=== PATIENT | male | born 1980 | race Two or more races ===

== ENCOUNTER 2020-06-14 17:34 | Inpatient (IN) | payer OTHER ==
[2020-06-14 19:25] VITALS: BMI 31.1
--- NOTE | 2020-06-14 19:47 | BHS.RME ---
Substance Use & Tx History - Last Treatment Date of last treatment: today [facility] Where was last treatment: ER Physical/Psych/Mental Status - Behavior Eye Contact: Normal - Cooperativeness Cooperativeness: Cooperative - Thinking Thought Processes: Logical - Physical Health Problems Is patient presently having any pain?: No Does patient presently have any injuries (include location): No Does patient currently have a fever: No CIWA Nausea/Vomitin Muscle Tremors: None Anxiety: 1-Mildly Anxious Agitation: 1-Slight > Activity Paroxysmal Sweats: 1-Minimal Palms Moist Orientation: 1-Uncertain about Date Tacttile Disturbances: 2-Mild Itch/Numbness/Burn Auditory Disturbances: 0-None Visual Disturbances: 3-Moderate Sensitivity Headache: 3-Moderate CIWA-Ar Total Score: 15
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
[2020-06-14] MEDS ORDERED: MENTHOL/PHENOL 1 EACH UD MM PRN (20:02)
[2020-06-14] MEDS ORDERED: METHOCARBAMOL 500 MG TABLET PO PRN (20:02)
[2020-06-14] MEDS ORDERED: ACETAMINOPHEN 325 MG TABLET (FP) PO PRN ×2 (20:02)
[2020-06-14] MEDS ORDERED: ONDANSETRON *ODT* 4 MG TABLET SL PRN (20:02)
[2020-06-14] MEDS ORDERED: BISMUTH SUBSALICYLATE 524 MG/30 ML UD PO PRN (20:02)
[2020-06-14] MEDS ORDERED: MAGNESIUM HYDROX 2400MG/30ML ORAL SUSPENSION 30 ML CUP PO PRN (20:02)
[2020-06-14] MEDS ORDERED: MAGNESIUM CITRATE 300 ML BOTTLE PO PRN (20:02)
[2020-06-14] MEDS ORDERED: MAG HYDROX/AL HYDROX/SIMETH 30 ML UNIT-DOSE CUP PO PRN (20:02)
[2020-06-14] MEDS ORDERED: chlordiazePOXIDE HCL 25 MG CAPSULE PO PRN (20:10)
[2020-06-14] MEDS: hydrOXYzine PAMOATE 25 MG CAPSULE (FP) PO PRN (21:50)
[2020-06-14] MEDS: NICOTINE POLACRILEX 2 MG GUM BUC PRN (21:53)
[2020-06-14] MEDS: THIAMINE HCL 100 MG TABLET (FP) PO SCH (21:53)
[2020-06-14] MEDS: MELATONIN 5 MG TABLETS PO SCH (21:53)
[2020-06-14] MEDS: BACITRACIN 0.9 GM PACKET TP SCH (21:53)
[2020-06-14] MEDS: chlordiazePOXIDE HCL 25 MG CAPSULE PO SCH (22:05)
[2020-06-15] MEDS: chlordiazePOXIDE HCL 25 MG CAPSULE PO SCH ×4 (06:10→22:27)
[2020-06-15] MEDS: NICOTINE POLACRILEX 2 MG GUM BUC PRN ×2 (08:30→20:18)
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
[2020-06-15 10:15] LABS: HEMOGLOBIN 16.1 GM/dL (11.7-16.9); MCH 31.7 pg (25.7-33.7); MCHC 33.6 g/dl (32.0-35.9); MEAN CELL VOLUME 94.5 fl (80-96); MEAN PLT VOLUME 9.4 fl (7.5-11.1); PLATELET COUNT 190 K/MM3 (134-434); RBC 5.08 M/mm3 (4.00-5.60); RDW 13.9 % (11.9-15.9); WHITE BLOOD COUNT 6.2 K/mm3 (4.0-10.0)
[2020-06-15] MEDS: BACITRACIN 0.9 GM PACKET TP SCH ×2 (10:22→22:27)
[2020-06-15] MEDS: SERTRALINE HCL 50 MG TABLET (FP) PO SCH (10:22)
[2020-06-15] MEDS: PRENATAL VITAMINS W/ FOLIC ACID TABLET (FP) PO SCH (10:22)
[2020-06-15 10:26] LABS: ALBUMIN 4.1 g/dl (3.4-5.0); BILIRUBIN,TOTAL 0.7 mg/dL (0.2-1); BLOOD UREA NITROGEN 14.5 mg/dL (7-18); CALCIUM 9.4 mg/dL (8.5-10.1); CREATININE 1.4 mg/dL (0.55-1.3); POTASSIUM 4.1 mmol/L (3.5-5.1); TOT PROT 7.7 g/dl (6.4-8.2)
--- NOTE | 2020-06-15 10:57 | PN ---
S CIWA - CIWA Score Nausea/Vomitin-No Nausea/No Vomiting Muscle Tremors: 2 Anxiety: 2 Agitation: 3 Paroxysmal Sweats: 2 Orientation: 0-Oriented Tacttile Disturbances: 0-None Auditory Disturbances: 0-None Visual Disturbances: 0-None Headache: 0-None Present CIWA-Ar Total Score: 9 BHS Progress Note (SOAP) Subjective: sweats shakes body aches interrupted sleep Objective: 06/15/20 10:56 Vital Signs Temperature 98.2 F 06/15/20 10:10 Pulse Rate 91 H 06/15/20 10:10 Respiratory Rate 18 06/15/20 10:10 Blood Pressure 123/75 06/15/20 10:10 O2 Sat by Pulse Oximetry (%) 98 06/15/20 10:10 Laboratory Tests 06/15/20 06/15/20 07:00 07:00 WBC 6.2 RBC 5.08 Hgb 16.1 Hct 48.0 MCV 94.5 MCH 31.7 MCHC 33.6 RDW 13.9 Plt Count 190 D MPV 9.4 Sodium 140 Potassium 4.1 Chloride 103 Carbon Dioxide 26 Anion Gap 11 BUN 14.5 Creatinine 1.4 H Est GFR (CKD-EPI)AfAm 72.32 Est GFR (CKD-EPI)NonAf 62.40 Random Glucose 118 H Calcium 9.4 Total Bilirubin 0.7 AST 27 ALT 44 Alkaline Phosphatase 120 H Total Protein 7.7 Albumin 4.1 labs noted aaox3 ambulating no acute distress Assessment: 06/15/20 10:57 withdrawals Plan: continue detox
[2020-06-15] MEDS ORDERED: FLU VACCINE (FLULAVAL) PF 60 MCG/0.5 ML SYRINGE 2020-2021 IM ONE (12:00)
[2020-06-15] MEDS: MELATONIN 5 MG TABLETS PO SCH (22:27)
[2020-06-15] MEDS: THIAMINE HCL 100 MG TABLET (FP) PO SCH (22:27)
[2020-06-16] MEDS: chlordiazePOXIDE HCL 25 MG CAPSULE PO SCH ×4 (05:45→22:14)
[2020-06-16] MEDS: PRENATAL VITAMINS W/ FOLIC ACID TABLET (FP) PO SCH (10:32)
[2020-06-16] MEDS: SERTRALINE HCL 50 MG TABLET (FP) PO SCH (10:32)
[2020-06-16] MEDS: BACITRACIN 0.9 GM PACKET TP SCH ×2 (10:32→22:14)
[2020-06-16] MEDS: NICOTINE POLACRILEX 2 MG GUM BUC PRN (10:32)
--- NOTE | 2020-06-16 12:30 | PN ---
S CIWA - CIWA Score Nausea/Vomitin-No Nausea/No Vomiting Muscle Tremors: 2 Anxiety: 1-Mildly Anxious Agitation: 2 Paroxysmal Sweats: 2 Orientation: 0-Oriented Tacttile Disturbances: 0-None Auditory Disturbances: 0-None Visual Disturbances: 0-None Headache: 0-None Present CIWA-Ar Total Score: 7 BHS Progress Note (SOAP) Subjective: sweats shakes Objective: 06/16/20 12:28 Vital Signs Temperature 97.7 F 06/16/20 09:05 Pulse Rate 92 H 06/16/20 09:05 Respiratory Rate 18 06/16/20 09:05 Blood Pressure 136/73 06/16/20 09:05 O2 Sat by Pulse Oximetry (%) 97 06/16/20 06:01 Laboratory Tests 06/14/20 06/15/20 06/15/20 07:00 07:00 07:00 WBC 6.2 RBC 5.08 Hgb 16.1 Hct 48.0 MCV 94.5 MCH 31.7 MCHC 33.6 RDW 13.9 Plt Count 190 D MPV 9.4 Sodium 140 Potassium 4.1 Chloride 103 Carbon Dioxide 26 Anion Gap 11 BUN 14.5 Creatinine 1.4 H Est GFR (CKD-EPI)AfAm 72.32 Est GFR (CKD-EPI)NonAf 62.40 Random Glucose 118 H Calcium 9.4 Total Bilirubin 0.7 AST 27 ALT 44 Alkaline Phosphatase 120 H Total Protein 7.7 Albumin 4.1 Syphilis Serology Non-reactive HIV Ag/Ab Combo Qual 06/15/20 07:00 WBC RBC Hgb Hct MCV MCH MCHC RDW Plt Count MPV Sodium Potassium Chloride Carbon Dioxide Anion Gap BUN Creatinine Est GFR (CKD-EPI)AfAm Est GFR (CKD-EPI)NonAf Random Glucose Calcium Total Bilirubin AST ALT Alkaline Phosphatase Total Protein Albumin Syphilis Serology HIV Ag/Ab Combo Qual Negative aaox3 ambulating no acute distress Assessment: 06/16/20 12:29 withdrawal sx Plan: continue detox increase fluids
[2020-06-16] MEDS: IBUPROFEN 400 MG TABLET (FP) PO PRN (19:15)
[2020-06-16] MEDS: MELATONIN 5 MG TABLETS PO SCH (22:14)
[2020-06-16] MEDS: THIAMINE HCL 100 MG TABLET (FP) PO SCH (22:15)
[2020-06-17] MEDS ORDERED: chlordiazePOXIDE HCL 10 MG CAPSULE PO PRN
[2020-06-17] MEDS: chlordiazePOXIDE HCL 10 MG CAPSULE PO SCH ×4 (06:49→22:04)
[2020-06-17] MEDS: SERTRALINE HCL 50 MG TABLET (FP) PO SCH (10:14)
[2020-06-17] MEDS: BACITRACIN 0.9 GM PACKET TP SCH ×2 (10:14→22:32)
[2020-06-17] MEDS: PRENATAL VITAMINS W/ FOLIC ACID TABLET (FP) PO SCH (10:15)
--- NOTE | 2020-06-17 11:13 | PN ---
[facility] CIWA - CIWA Score Nausea/Vomitin-No Nausea/No Vomiting Muscle Tremors: 1-None Visible, but [place] Anxiety: 1-Mildly Anxious Agitation: 1-Slight > Activity Paroxysmal Sweats: 1-Minimal Palms Moist Orientation: 0-Oriented Tacttile Disturbances: 0-None Auditory Disturbances: 0-None Visual Disturbances: 0-None Headache: 0-None Present CIWA-Ar Total Score: 4 BHS Progress Note (SOAP) Subjective: feeling great little sweats little anxiety Objective: 06/17/20 11:13 Vital Signs Temperature 97.7 F 06/17/20 08:25 Pulse Rate 99 H 06/17/20 08:25 Respiratory Rate 18 06/17/20 08:25 Blood Pressure 137/87 06/17/20 08:25 O2 Sat by Pulse Oximetry (%) 97 06/17/20 08:25 aaox3 ambulating no acute distress Assessment: 06/17/20 11:13 mild withdrawals Plan: continue detox increase fluids
[2020-06-17] MEDS: NICOTINE POLACRILEX 2 MG GUM BUC PRN (18:03)
[2020-06-17] MEDS: hydrOXYzine PAMOATE 25 MG CAPSULE (FP) PO PRN (20:40)
[2020-06-17] MEDS: THIAMINE HCL 100 MG TABLET (FP) PO SCH (22:04)
[2020-06-17] MEDS: MELATONIN 5 MG TABLETS PO SCH (22:04)
[2020-06-18] MEDS: chlordiazePOXIDE HCL 10 MG CAPSULE PO SCH ×2 (05:35→18:28)
[2020-06-18] MEDS: PRENATAL VITAMINS W/ FOLIC ACID TABLET (FP) PO SCH (10:14)
[2020-06-18] MEDS: BACITRACIN 0.9 GM PACKET TP SCH ×2 (10:14→22:11)
[2020-06-18] MEDS: SERTRALINE HCL 50 MG TABLET (FP) PO SCH (10:14)
--- NOTE | 2020-06-18 13:33 | PN ---
[facility] CIWA - CIWA Score Nausea/Vomitin-No Nausea/No Vomiting Muscle Tremors: 1-None Visible, but [place] Anxiety: 1-Mildly Anxious Agitation: 0-Normal Activity Paroxysmal Sweats: No Perspiration Orientation: 0-Oriented Tacttile Disturbances: 0-None Auditory Disturbances: 0-None Visual Disturbances: 0-None Headache: 0-None Present CIWA-Ar Total Score: 2 BHS Progress Note (SOAP) Subjective: feeling great Objective: 06/18/20 13:20 Vital Signs Temperature 98.4 F 06/18/20 08:40 Pulse Rate 99 H 06/18/20 08:40 Respiratory Rate 18 06/18/20 08:40 Blood Pressure 143/91 06/18/20 08:40 O2 Sat by Pulse Oximetry (%) 100 06/18/20 08:40 aaox3 ambulating no acute distress Assessment: 06/18/20 13:20 mild withdrawals Plan: d/c in am
[2020-06-18] MEDS: IBUPROFEN 400 MG TABLET (FP) PO PRN (18:27)
[2020-06-18] MEDS: MELATONIN 5 MG TABLETS PO SCH (22:11)
[2020-06-18] MEDS: THIAMINE HCL 100 MG TABLET (FP) PO SCH (22:11)
[2020-06-19] MEDS ORDERED: chlordiazePOXIDE HCL 10 MG CAPSULE PO ONE (05:00)
[2020-06-19 08:46] VITALS: BP 147/93; PULSE 86; TEMP 96.9
[2020-06-19] MEDS: SERTRALINE HCL 50 MG TABLET (FP) PO SCH (09:15)
[2020-06-19] MEDS: PRENATAL VITAMINS W/ FOLIC ACID TABLET (FP) PO SCH (09:16)
[2020-06-19] MEDS: BACITRACIN 0.9 GM PACKET TP SCH (09:17)
--- NOTE | 2020-06-19 11:12 | DS ---
[facility] Detox Discharge Summary Admission Date: 06/14/20 Discharge Date: 06/19/20 - History Present History: Alcohol Dependence Additional Comments: Patient seen and examined, alert and oriented x3, in acute respiratory distress. Full ROM, ambulatory in the unit without assistance. Skin warm to touch without lesions. Completed detox protocol, stable for discharge today. Encouraged to follow up with aftercare plans. Pertinent Past History: History of HTN, HLD, depression, alcohol and nicotine use disorder - Physical Exam Results Vital Signs: Vital Signs Temperature 96.9 F L 06/19/20 06:25 Pulse Rate 86 06/19/20 06:25 Respiratory Rate 20 06/19/20 06:25 Blood Pressure 147/93 06/19/20 06:25 O2 Sat by Pulse Oximetry (%) 100 06/19/20 06:25 Vital Signs 06/19/20 06:25 Temperature 96.9 F L Pulse Rate 86 Respiratory 20 Rate Blood Pressure 147/93 O2 Sat by Pulse 100 Oximetry (%) Laboratory Last Values WBC 6.2 K/mm3 (4.0-10.0) 06/15/20 07:00 RBC 5.08 M/mm3 (4.00-5.60) 06/15/20 07:00 Hgb 16.1 GM/dL (11.7-16.9) 06/15/20 07:00 Hct 48.0 % (35.4-49) 06/15/20 07:00 MCV 94.5 fl (80-96) 06/15/20 07:00 MCH 31.7 pg (25.7-33.7) 06/15/20 07:00 MCHC 33.6 g/dl (32.0-35.9) 06/15/20 07:00 RDW 13.9 % (11.9-15.9) 06/15/20 07:00 Plt Count 190 K/MM3 (134-434) D 06/15/20 07:00 MPV 9.4 fl (7.5-11.1) 06/15/20 07:00 Sodium 140 mmol/L (136-145) 06/15/20 07:00 Potassium 4.1 mmol/L (3.5-5.1) 06/15/20 07:00 Chloride 103 mmol/L (98-107) 06/15/20 07:00 Carbon Dioxide 26 mmol/L (21-32) 06/15/20 07:00 Anion Gap 11 MMOL/L (8-16) 06/15/20 07:00 BUN 14.5 mg/dL (7-18) 06/15/20 07:00 Creatinine 1.4 mg/dL (0.55-1.3) H 06/15/20 07:00 Est GFR (CKD-EPI)AfAm 72.32 06/15/20 07:00 Est GFR (CKD-EPI)NonAf 62.40 06/15/20 07:00 Random Glucose 118 mg/dL (74-106) H 06/15/20 07:00 Calcium 9.4 mg/dL (8.5-10.1) 06/15/20 07:00 Total Bilirubin 0.7 mg/dL (0.2-1) 06/15/20 07:00 AST 27 U/L (15-37) 06/15/20 07:00 ALT 44 U/L (13-61) 06/15/20 07:00 Alkaline Phosphatase 120 U/L (45-117) H 06/15/20 07:00 Total Protein 7.7 g/dl (6.4-8.2) 06/15/20 07:00 Albumin 4.1 g/dl (3.4-5.0) 06/15/20 07:00 Syphilis Serology Non-reactive (NONREACTIVE) 06/14/20 07:00 COVID-19 (NELL) Not detected (Not Detected) 06/14/20 20:20 HIV Ag/Ab Combo Qual Negative (NEGATIVE) 06/15/20 07:00 Labs noted. Pertinent Admission Physical Exam Findings: Withdrawal symptoms. - Treatment Hospital Course: Detox Protocol Followed, Detoxed Safely, Responded well, Discharged Condition Good - Medication Discharge Medications: Ambulatory Orders NK [No Known Home Medication] 06/14/20 - Diagnosis (1) Alcohol dependence, uncomplicated Status: Acute (2) HLD (hyperlipidemia) Status: Chronic (3) HTN (hypertension) Status: Chronic - AMA Did Patient Leave Against Medical Advice: No
== END 2020-06-19 09:25 | disposition home or self-care (01) | DRG 775 ==
LOC: YASAS 17:34 → Y6N 20:13
PROVIDERS: ADMIT Allergy & Immunology; ATTEND Allergy & Immunology
PROC: HZ2ZZZZ Detoxification Services for Substance Abuse Treatment (ICD-10-PCS; principal; 2020-06-14)
DX: F10.230 Alcohol dependence with withdrawal, uncomplicated (principal); F17.210 Nicotine dependence, cigarettes, uncomplicated; F33.1 Major depressive disorder, recurrent, moderate; F10.24 Alcohol dependence with alcohol-induced mood disorder; F10.282 Alcohol dependence with alcohol-induced sleep disorder; E78.5 Hyperlipidemia, unspecified; E78.00 Pure hypercholesterolemia, unspecified; Z86.69 Personal history of other diseases of the nervous system and sense organs; Z87.81 Personal history of (healed) traumatic fracture; Z98.890 Other specified postprocedural states
CPT/HCPCS: 36415; 80053; 85027; 86780; 87389; C9803; U0003

== ENCOUNTER 2022-12-16 15:10 | Inpatient (IN) | payer OTHER ==
[2022-12-16 16:01] VITALS: BMI 35.6
[2022-12-16] MEDS ORDERED: IBUPROFEN 600 MG TABLET (FP) PO PRN (18:48)
[2022-12-16] MEDS ORDERED: MAG HYDROX/AL HYDROX/SIMETH 30 ML UNIT-DOSE CUP PO PRN (18:48)
[2022-12-16] MEDS ORDERED: NICOTINE 10 MG CARTRIDGE (INHALER) IH PRN (18:48)
[2022-12-16] MEDS ORDERED: chlordiazePOXIDE HCL 25 MG CAPSULE PO PRN (18:48)
[2022-12-16] MEDS ORDERED: BENZOCAINE/MENTHOL (CHLORASEPTIC ) LOZENGE MM PRN (18:48)
[2022-12-16] MEDS ORDERED: POLYETHYLENE GLYCOL (HEALTHYLAX) 3350 17 GM PACKET PO PRN (18:48)
[2022-12-16] MEDS ORDERED: NALOXONE HCL (KLOXXADO) 8 MG SPRAY NS PRN (18:48)
[2022-12-16] MEDS ORDERED: ONDANSETRON *ODT* 4 MG TABLET SL PRN (18:48)
[2022-12-16] MEDS ORDERED: NALOXONE HCL 0.4 MG/ML VIAL IM PRN (18:48)
[2022-12-16] MEDS ORDERED: BENZONATATE 200 MG CAPSULE PO PRN (18:48)
[2022-12-16] MEDS ORDERED: LOPERAMIDE HCL 2 MG CAPSULE PO PRN (18:48)
[2022-12-16] MEDS ORDERED: guaiFENesin 600 MG TABLET.ER (FP) PO PRN (18:48)
[2022-12-16] MEDS ORDERED: MAGNESIUM HYDROX 2400MG/30ML ORAL SUSPENSION 30 ML CUP PO PRN (18:48)
[2022-12-16] MEDS ORDERED: DICYCLOMINE HCL 10 MG CAPSULE PO PRN (18:48)
[2022-12-16] MEDS ORDERED: IBUPROFEN 400 MG TABLET (FP) PO PRN (18:48)
[2022-12-16] MEDS ORDERED: BISMUTH SUBSALICYLATE 524 MG/30 ML PO PRN (18:48)
[2022-12-16] MEDS ORDERED: ACETAMINOPHEN 325 MG TABLET (FP) PO PRN (18:48)
[2022-12-16] MEDS: hydrOXYzine PAMOATE 25 MG CAPSULE (FP) PO PRN (20:05)
[2022-12-16] MEDS ORDERED: MELATONIN 5 MG TABLETS PO SCH (22:00)
[2022-12-16] MEDS: THIAMINE HCL 100 MG TABLET (FP) PO SCH (22:53)
[2022-12-16] MEDS: chlordiazePOXIDE HCL 25 MG CAPSULE PO SCH (22:53)
[2022-12-17] MEDS: chlordiazePOXIDE HCL 25 MG CAPSULE PO SCH ×4 (05:47→22:33)
[2022-12-17] MEDS: METHOCARBAMOL 500 MG TABLET PO PRN (10:35)
[2022-12-17] MEDS: hydrOXYzine PAMOATE 25 MG CAPSULE (FP) PO PRN (10:35)
[2022-12-17] MEDS: PRENATAL VITAMINS W/ FOLIC ACID TABLET (FP) PO SCH (10:35)
[2022-12-17] MEDS: SERTRALINE HCL 50 MG TABLET (FP) PO SCH (10:46)
[2022-12-17 12:25] LABS: HEMATOCRIT 48.3 % (35.4-49); HEMOGLOBIN 16.9 GM/dL (11.7-16.9); MCHC 34.9 g/dl (32.0-35.9); MEAN CELL VOLUME 88.8 fl (80-96); MEAN PLT VOLUME 9.7 fl (7.5-11.1); PLATELET COUNT 141 10^3/uL (134-434); RBC 5.44 M/mm3 (4.00-5.60); RDW 15.4 % (11.9-15.9); WHITE BLOOD COUNT 4.1 K/mm3 (4.0-10.0)
[2022-12-17 12:36] LABS: CALCIUM 8.8 mg/dL (8.5-10.1)
[2022-12-17 12:37] LABS: ALBUMIN 3.9 g/dl (3.4-5.0); BLOOD UREA NITROGEN 10.2 mg/dL (7-18)
[2022-12-17 12:40] LABS: CREATININE 0.9 mg/dL (0.55-1.3)
[2022-12-17 12:41] LABS: TOT PROT 7.3 g/dl (6.4-8.2)
[2022-12-17] MEDS: THIAMINE HCL 100 MG TABLET (FP) PO SCH (22:34)
[2022-12-17] MEDS: MELATONIN 5 MG TABLETS PO SCH (22:34)
[2022-12-18] MEDS: chlordiazePOXIDE HCL 25 MG CAPSULE PO SCH ×4 (05:36→22:16)
[2022-12-18] MEDS: PRENATAL VITAMINS W/ FOLIC ACID TABLET (FP) PO SCH (10:50)
[2022-12-18] MEDS: SERTRALINE HCL 50 MG TABLET (FP) PO SCH (10:50)
[2022-12-18] MEDS: METHOCARBAMOL 500 MG TABLET PO PRN (10:50)
[2022-12-18] MEDS: hydrOXYzine PAMOATE 25 MG CAPSULE (FP) PO PRN (10:50)
[2022-12-18] MEDS: amLODIPine BESYLATE 2.5 MG TABLET (FP) PO SCH (11:07)
[2022-12-18 11:32] LABS: CHOLESTEROL 219 mg/dL (50-200)
[2022-12-18 11:33] LABS: LDL CHOLESTEROL (ONLY SJRH) 127 mg/dL (5-100)
[2022-12-18 11:35] LABS: HDL CHOLESTEROL 66 mg/dL (40-60)
[2022-12-18] MEDS: THIAMINE HCL 100 MG TABLET (FP) PO SCH (22:16)
[2022-12-18] MEDS: MELATONIN 5 MG TABLETS PO SCH (22:16)
[2022-12-19] MEDS ORDERED: chlordiazePOXIDE HCL 10 MG CAPSULE PO PRN
[2022-12-19] MEDS: chlordiazePOXIDE HCL 10 MG CAPSULE PO SCH ×4 (05:41→22:27)
[2022-12-19] MEDS: METHOCARBAMOL 500 MG TABLET PO PRN (10:04)
[2022-12-19] MEDS: SERTRALINE HCL 50 MG TABLET (FP) PO SCH (10:04)
[2022-12-19] MEDS: amLODIPine BESYLATE 2.5 MG TABLET (FP) PO SCH (10:04)
[2022-12-19] MEDS: hydrOXYzine PAMOATE 25 MG CAPSULE (FP) PO PRN (10:04)
[2022-12-19] MEDS: PRENATAL VITAMINS W/ FOLIC ACID TABLET (FP) PO SCH (10:04)
[2022-12-19] MEDS: THIAMINE HCL 100 MG TABLET (FP) PO SCH (22:27)
[2022-12-19] MEDS: MELATONIN 5 MG TABLETS PO SCH (22:27)
[2022-12-20] MEDS: chlordiazePOXIDE HCL 10 MG CAPSULE PO SCH ×2 (05:29→17:44)
[2022-12-20] MEDS: PRENATAL VITAMINS W/ FOLIC ACID TABLET (FP) PO SCH (10:19)
[2022-12-20] MEDS: amLODIPine BESYLATE 2.5 MG TABLET (FP) PO SCH (10:19)
[2022-12-20] MEDS: SERTRALINE HCL 50 MG TABLET (FP) PO SCH (10:19)
[2022-12-20] MEDS: MELATONIN 5 MG TABLETS PO SCH (22:09)
[2022-12-20] MEDS: THIAMINE HCL 100 MG TABLET (FP) PO SCH (22:09)
[2022-12-21] MEDS ORDERED: chlordiazePOXIDE HCL 10 MG CAPSULE PO ONE (05:00)
[2022-12-21 06:39] VITALS: RESP 18
[2022-12-21 09:03] VITALS: BP 153/94; PULSE 98; TEMP 98.4
[2022-12-21] MEDS: PRENATAL VITAMINS W/ FOLIC ACID TABLET (FP) PO SCH (11:01)
[2022-12-21] MEDS: SERTRALINE HCL 50 MG TABLET (FP) PO SCH (11:03)
[2022-12-21] MEDS: amLODIPine BESYLATE 2.5 MG TABLET (FP) PO SCH (11:04)
== END 2022-12-21 10:08 | disposition home or self-care (01) | DRG 775 ==
LOC: YASAS 15:10 → Y6N 19:22
PROVIDERS: ADMIT Allergy & Immunology; ATTEND Surgery
PROC: HZ2ZZZZ Detoxification Services for Substance Abuse Treatment (ICD-10-PCS; principal; 2022-12-16)
DX: F10.230 Alcohol dependence with withdrawal, uncomplicated (principal); F12.20 Cannabis dependence, uncomplicated; F17.210 Nicotine dependence, cigarettes, uncomplicated; F19.282 Other psychoactive substance dependence with psychoactive substance-induced sleep disorder; F41.8 Other specified anxiety disorders; I10 Essential (primary) hypertension; Z86.69 Personal history of other diseases of the nervous system and sense organs
CPT/HCPCS: 36415; 80053; 80061; 85027; 86780; 87811; C9803-CS; U0003; U0005

== ENCOUNTER 2023-01-04 19:24 | Inpatient (IN) | payer OTHER ==
[2023-01-04 19:55] VITALS: BMI 34.7
[2023-01-04] MEDS ORDERED: BENZONATATE 200 MG CAPSULE PO PRN (20:42)
[2023-01-04] MEDS ORDERED: NALOXONE HCL 0.4 MG/ML VIAL IM PRN (20:42)
[2023-01-04] MEDS ORDERED: ONDANSETRON *ODT* 4 MG TABLET SL PRN (20:42)
[2023-01-04] MEDS ORDERED: MAG HYDROX/AL HYDROX/SIMETH 30 ML UNIT-DOSE CUP PO PRN (20:42)
[2023-01-04] MEDS ORDERED: POLYETHYLENE GLYCOL (HEALTHYLAX) 3350 17 GM PACKET PO PRN (20:42)
[2023-01-04] MEDS ORDERED: MAGNESIUM HYDROX 2400MG/30ML ORAL SUSPENSION 30 ML CUP PO PRN (20:42)
[2023-01-04] MEDS ORDERED: DICYCLOMINE HCL 10 MG CAPSULE PO PRN (20:42)
[2023-01-04] MEDS ORDERED: NALOXONE HCL (KLOXXADO) 8 MG SPRAY NS PRN (20:42)
[2023-01-04] MEDS ORDERED: chlordiazePOXIDE HCL 25 MG CAPSULE PO PRN (20:42)
[2023-01-04] MEDS ORDERED: LOPERAMIDE HCL 2 MG CAPSULE PO PRN (20:42)
[2023-01-04] MEDS ORDERED: BENZOCAINE/MENTHOL (CHLORASEPTIC ) LOZENGE MM PRN (20:42)
[2023-01-04] MEDS ORDERED: guaiFENesin 600 MG TABLET.ER (FP) PO PRN (20:42)
[2023-01-04] MEDS ORDERED: ACETAMINOPHEN 325 MG TABLET (FP) PO PRN (20:42)
[2023-01-04] MEDS ORDERED: BISMUTH SUBSALICYLATE 524 MG/30 ML PO PRN (20:42)
[2023-01-04] MEDS ORDERED: MELATONIN 5 MG TABLETS PO SCH (22:00)
[2023-01-04] MEDS: chlordiazePOXIDE HCL 25 MG CAPSULE PO SCH (22:46)
[2023-01-04] MEDS: THIAMINE HCL 100 MG TABLET (FP) PO SCH (22:46)
[2023-01-05] MEDS: chlordiazePOXIDE HCL 25 MG CAPSULE PO SCH ×4 (05:16→22:06)
[2023-01-05] MEDS: IBUPROFEN 600 MG TABLET (FP) PO PRN (05:17)
[2023-01-05] MEDS: SERTRALINE HCL 50 MG TABLET (FP) PO SCH (10:36)
[2023-01-05] MEDS: NICOTINE 14 MG/24 HOURS TOPICAL PATCH TD SCH (10:38)
[2023-01-05] MEDS: PRENATAL VITAMINS W/ FOLIC ACID TABLET (FP) PO SCH (10:38)
[2023-01-05 12:06] LABS: HEMATOCRIT 48.6 % (35.4-49); HEMOGLOBIN 16.9 GM/dL (11.7-16.9); MCH 30.9 pg (25.7-33.7); MCHC 34.8 g/dl (32.0-35.9); MEAN CELL VOLUME 88.7 fl (80-96); MEAN PLT VOLUME 9.7 fl (7.5-11.1); PLATELET COUNT 159 10^3/uL (134-434); RBC 5.47 M/mm3 (4.00-5.60); RDW 15.6 % (11.9-15.9)
[2023-01-05 12:07] LABS: POTASSIUM 3.6 mmol/L (3.5-5.1)
[2023-01-05 12:10] LABS: ALBUMIN 3.6 g/dl (3.4-5.0); BLOOD UREA NITROGEN 8.9 mg/dL (7-18); CALCIUM 8.9 mg/dL (8.5-10.1)
[2023-01-05 12:13] LABS: CREATININE 0.8 mg/dL (0.55-1.3)
[2023-01-05 12:15] LABS: BILIRUBIN,TOTAL 0.5 mg/dL (0.2-1); TOT PROT 7.1 g/dl (6.4-8.2)
[2023-01-05] MEDS: THIAMINE HCL 100 MG TABLET (FP) PO SCH (22:06)
[2023-01-05] MEDS: SUVOREXANT 10 MG TABLET PO PRN (22:07)
[2023-01-06] MEDS: chlordiazePOXIDE HCL 25 MG CAPSULE PO SCH ×4 (05:38→23:03)
[2023-01-06] MEDS: SERTRALINE HCL 50 MG TABLET (FP) PO SCH (10:40)
[2023-01-06] MEDS: PRENATAL VITAMINS W/ FOLIC ACID TABLET (FP) PO SCH (10:40)
[2023-01-06] MEDS: amLODIPine BESYLATE 10 MG TABLET (FP) PO SCH (10:40)
[2023-01-06] MEDS: NICOTINE 14 MG/24 HOURS TOPICAL PATCH TD SCH (10:41)
[2023-01-06] MEDS: IBUPROFEN 400 MG TABLET (FP) PO PRN (17:21)
[2023-01-06] MEDS: NICOTINE POLACRILEX 2 MG GUM BUC PRN (18:44)
[2023-01-06] MEDS: SUVOREXANT 10 MG TABLET PO PRN (22:23)
[2023-01-06] MEDS: THIAMINE HCL 100 MG TABLET (FP) PO SCH (23:03)
[2023-01-07] MEDS ORDERED: chlordiazePOXIDE HCL 10 MG CAPSULE PO PRN
[2023-01-07] MEDS: chlordiazePOXIDE HCL 10 MG CAPSULE PO SCH ×4 (05:29→22:22)
[2023-01-07] MEDS: amLODIPine BESYLATE 10 MG TABLET (FP) PO SCH (10:17)
[2023-01-07] MEDS: PRENATAL VITAMINS W/ FOLIC ACID TABLET (FP) PO SCH (10:18)
[2023-01-07] MEDS: SERTRALINE HCL 50 MG TABLET (FP) PO SCH (10:18)
[2023-01-07] MEDS: NICOTINE 14 MG/24 HOURS TOPICAL PATCH TD SCH (10:22)
[2023-01-07] MEDS: NICOTINE POLACRILEX 2 MG GUM BUC PRN ×3 (10:33→17:53)
[2023-01-07] MEDS: IBUPROFEN 400 MG TABLET (FP) PO PRN (13:57)
[2023-01-07] MEDS: THIAMINE HCL 100 MG TABLET (FP) PO SCH (22:22)
[2023-01-07] MEDS: SUVOREXANT 10 MG TABLET PO PRN (22:23)
[2023-01-08] MEDS: chlordiazePOXIDE HCL 10 MG CAPSULE PO SCH ×2 (05:48→16:36)
[2023-01-08] MEDS: PRENATAL VITAMINS W/ FOLIC ACID TABLET (FP) PO SCH (10:02)
[2023-01-08] MEDS: NICOTINE 14 MG/24 HOURS TOPICAL PATCH TD SCH (10:02)
[2023-01-08] MEDS: amLODIPine BESYLATE 10 MG TABLET (FP) PO SCH (10:03)
[2023-01-08] MEDS: SERTRALINE HCL 50 MG TABLET (FP) PO SCH (10:03)
[2023-01-08] MEDS: NICOTINE POLACRILEX 2 MG GUM BUC PRN ×3 (10:23→17:58)
[2023-01-08] MEDS: IBUPROFEN 600 MG TABLET (FP) PO PRN (16:36)
[2023-01-08] MEDS ORDERED: MELATONIN 5 MG TABLETS PO SCH (22:00)
[2023-01-08] MEDS: THIAMINE HCL 100 MG TABLET (FP) PO SCH (22:40)
[2023-01-09] MEDS ORDERED: chlordiazePOXIDE HCL 10 MG CAPSULE PO ONE (05:00)
[2023-01-09 09:25] VITALS: BP 132/79; PULSE 69; RESP 17; TEMP 97.3
[2023-01-09] MEDS: amLODIPine BESYLATE 10 MG TABLET (FP) PO SCH (10:07)
[2023-01-09] MEDS: PRENATAL VITAMINS W/ FOLIC ACID TABLET (FP) PO SCH (10:08)
[2023-01-09] MEDS: SERTRALINE HCL 50 MG TABLET (FP) PO SCH (10:08)
[2023-01-09] MEDS: NICOTINE POLACRILEX 2 MG GUM BUC PRN (10:09)
[2023-01-09] MEDS: NICOTINE 14 MG/24 HOURS TOPICAL PATCH TD SCH (10:09)
== END 2023-01-09 11:48 | disposition other institution (70) | DRG 775 ==
LOC: YASAS 19:24 → Y6N 21:51
PROVIDERS: ADMIT Allergy & Immunology; ATTEND Surgery
PROC: HZ2ZZZZ Detoxification Services for Substance Abuse Treatment (ICD-10-PCS; principal; 2023-01-04)
DX: F10.230 Alcohol dependence with withdrawal, uncomplicated (principal); F12.20 Cannabis dependence, uncomplicated; F17.210 Nicotine dependence, cigarettes, uncomplicated; F33.1 Major depressive disorder, recurrent, moderate; F10.282 Alcohol dependence with alcohol-induced sleep disorder; F10.280 Alcohol dependence with alcohol-induced anxiety disorder; F19.24 Other psychoactive substance dependence with psychoactive substance-induced mood disorder; E78.5 Hyperlipidemia, unspecified; I10 Essential (primary) hypertension; Z86.69 Personal history of other diseases of the nervous system and sense organs
CPT/HCPCS: 36415; 80053; 85027; 86780; C9803-CS; U0003; U0005

== ENCOUNTER 2023-01-09 11:55 | Inpatient (IN) | payer OTHER ==
[2023-01-09] MEDS ORDERED: guaiFENesin 600 MG TABLET.ER (FP) PO PRN (12:00)
[2023-01-09] MEDS ORDERED: NALOXONE HCL 0.4 MG/ML VIAL IVPUSH PRN (12:00)
[2023-01-09] MEDS ORDERED: LOPERAMIDE HCL 2 MG CAPSULE PO PRN (12:00)
[2023-01-09] MEDS ORDERED: hydrOXYzine PAMOATE 25 MG CAPSULE (FP) PO PRN (12:00)
[2023-01-09] MEDS ORDERED: AMMONIUM LACTATE 12% LOTION 225 GM BOTTLE TP PRN (12:00)
[2023-01-09] MEDS ORDERED: ACETAMINOPHEN 325 MG TABLET (FP) PO PRN (12:00)
[2023-01-09] MEDS ORDERED: BENZONATATE 200 MG CAPSULE PO PRN (12:00)
[2023-01-09] MEDS ORDERED: COLLOIDAL OATMEAL 1 BAR EACH TP PRN (12:00)
[2023-01-09] MEDS ORDERED: NALOXONE HCL (KLOXXADO) 8 MG SPRAY NS PRN (12:00)
[2023-01-09] MEDS ORDERED: METHOCARBAMOL 500 MG TABLET PO PRN (12:00)
[2023-01-09] MEDS ORDERED: BENZOCAINE/MENTHOL (CHLORASEPTIC ) LOZENGE MM PRN (12:00)
[2023-01-09] MEDS: NICOTINE POLACRILEX 4 MG GUM BUC PRN ×3 (14:12→21:25)
[2023-01-09] MEDS: MELATONIN 5 MG TABLETS PO SCH (21:20)
[2023-01-09] MEDS: THIAMINE HCL 100 MG TABLET (FP) PO SCH (21:20)
[2023-01-10] MEDS: IBUPROFEN 400 MG TABLET (FP) PO PRN (06:08)
[2023-01-10] MEDS: NICOTINE POLACRILEX 4 MG GUM BUC PRN ×6 (06:09→21:19)
[2023-01-10] MEDS: PRENATAL VITAMINS W/ FOLIC ACID TABLET (FP) PO SCH (09:53)
[2023-01-10] MEDS: amLODIPine BESYLATE 10 MG TABLET (FP) PO SCH (09:54)
[2023-01-10] MEDS: SERTRALINE HCL 50 MG TABLET (FP) PO SCH (09:54)
[2023-01-10] MEDS: MELATONIN 5 MG TABLETS PO SCH (21:18)
[2023-01-10] MEDS: THIAMINE HCL 100 MG TABLET (FP) PO SCH (21:18)
[2023-01-11] MEDS: IBUPROFEN 600 MG TABLET (FP) PO PRN (03:23)
[2023-01-11] MEDS: POLYETHYLENE GLYCOL (HEALTHYLAX) 3350 17 GM PACKET PO PRN (03:25)
[2023-01-11] MEDS: NICOTINE POLACRILEX 4 MG GUM BUC PRN ×4 (07:49→21:25)
[2023-01-11] MEDS: amLODIPine BESYLATE 10 MG TABLET (FP) PO SCH (10:05)
[2023-01-11] MEDS: PRENATAL VITAMINS W/ FOLIC ACID TABLET (FP) PO SCH (10:05)
[2023-01-11] MEDS: SERTRALINE HCL 50 MG TABLET (FP) PO SCH (10:06)
[2023-01-11] MEDS: THIAMINE HCL 100 MG TABLET (FP) PO SCH (21:24)
[2023-01-11] MEDS: MELATONIN 5 MG TABLETS PO SCH (21:24)
[2023-01-12] MEDS: IBUPROFEN 400 MG TABLET (FP) PO PRN (03:37)
[2023-01-12] MEDS: MAG HYDROX/AL HYDROX/SIMETH 30 ML UNIT-DOSE CUP PO PRN ×2 (03:38→17:31)
[2023-01-12] MEDS: NICOTINE POLACRILEX 4 MG GUM BUC PRN ×5 (06:06→21:12)
[2023-01-12] MEDS: SERTRALINE HCL 50 MG TABLET (FP) PO SCH (10:10)
[2023-01-12] MEDS: PRENATAL VITAMINS W/ FOLIC ACID TABLET (FP) PO SCH (10:10)
[2023-01-12] MEDS: amLODIPine BESYLATE 10 MG TABLET (FP) PO SCH (10:11)
[2023-01-12] MEDS ORDERED: FLU VACC QS2022-23(6MOS UP)/PF 60 MCG/0.5 ML SYRINGE IM ONE (12:00)
[2023-01-12] MEDS ORDERED: PNEUMOC 20-VAL CONJ-DIP CRM/PF 0.5 ML SYRINGE IM ONE (12:00)
[2023-01-12] MEDS: THIAMINE HCL 100 MG TABLET (FP) PO SCH (21:11)
[2023-01-12] MEDS: MELATONIN 5 MG TABLETS PO SCH (21:11)
[2023-01-13] MEDS: IBUPROFEN 600 MG TABLET (FP) PO PRN (02:14)
[2023-01-13] MEDS: MAGNESIUM HYDROX 2400MG/30ML ORAL SUSPENSION 30 ML CUP PO PRN (06:19)
[2023-01-13] MEDS: NICOTINE POLACRILEX 4 MG GUM BUC PRN (08:54)
[2023-01-13] MEDS: SERTRALINE HCL 50 MG TABLET (FP) PO SCH (09:54)
[2023-01-13] MEDS: PRENATAL VITAMINS W/ FOLIC ACID TABLET (FP) PO SCH (09:54)
[2023-01-13] MEDS: amLODIPine BESYLATE 10 MG TABLET (FP) PO SCH (09:54)
[2023-01-13] MEDS: NICOTINE 10 MG CARTRIDGE (INHALER) IH PRN ×2 (09:55→17:31)
[2023-01-13] MEDS: MELATONIN 5 MG TABLETS PO SCH (21:27)
[2023-01-13] MEDS: THIAMINE HCL 100 MG TABLET (FP) PO SCH (21:27)
[2023-01-14] MEDS: NICOTINE 10 MG CARTRIDGE (INHALER) IH PRN ×3 (06:38→18:56)
[2023-01-14] MEDS: amLODIPine BESYLATE 10 MG TABLET (FP) PO SCH (09:55)
[2023-01-14] MEDS: SERTRALINE HCL 50 MG TABLET (FP) PO SCH (09:55)
[2023-01-14] MEDS: PRENATAL VITAMINS W/ FOLIC ACID TABLET (FP) PO SCH (09:55)
[2023-01-14] MEDS: THIAMINE HCL 100 MG TABLET (FP) PO SCH (21:27)
[2023-01-14] MEDS: MELATONIN 5 MG TABLETS PO SCH (21:27)
[2023-01-15] MEDS: IBUPROFEN 400 MG TABLET (FP) PO PRN (03:44)
[2023-01-15] MEDS: POLYETHYLENE GLYCOL (HEALTHYLAX) 3350 17 GM PACKET PO PRN (03:45)
[2023-01-15] MEDS: NICOTINE 10 MG CARTRIDGE (INHALER) IH PRN ×4 (06:56→21:16)
[2023-01-15] MEDS: amLODIPine BESYLATE 10 MG TABLET (FP) PO SCH (09:55)
[2023-01-15] MEDS: PRENATAL VITAMINS W/ FOLIC ACID TABLET (FP) PO SCH (09:55)
[2023-01-15] MEDS: SERTRALINE HCL 50 MG TABLET (FP) PO SCH (09:55)
[2023-01-15] MEDS: THIAMINE HCL 100 MG TABLET (FP) PO SCH (21:16)
[2023-01-15] MEDS: MELATONIN 5 MG TABLETS PO SCH (21:16)
[2023-01-16] MEDS: NICOTINE 10 MG CARTRIDGE (INHALER) IH PRN ×2 (06:29→19:12)
[2023-01-16] MEDS: IBUPROFEN 400 MG TABLET (FP) PO PRN (06:54)
[2023-01-16] MEDS: PRENATAL VITAMINS W/ FOLIC ACID TABLET (FP) PO SCH (09:58)
[2023-01-16] MEDS: amLODIPine BESYLATE 10 MG TABLET (FP) PO SCH (09:58)
[2023-01-16] MEDS: SERTRALINE HCL 50 MG TABLET (FP) PO SCH (09:58)
[2023-01-16] MEDS: THIAMINE HCL 100 MG TABLET (FP) PO SCH (21:08)
[2023-01-16] MEDS: MELATONIN 5 MG TABLETS PO SCH (21:08)
[2023-01-17] MEDS: PRENATAL VITAMINS W/ FOLIC ACID TABLET (FP) PO SCH (09:59)
[2023-01-17] MEDS: amLODIPine BESYLATE 10 MG TABLET (FP) PO SCH (09:59)
[2023-01-17] MEDS: SERTRALINE HCL 50 MG TABLET (FP) PO SCH (10:00)
[2023-01-17] MEDS: NICOTINE 10 MG CARTRIDGE (INHALER) IH PRN ×3 (10:00→21:14)
[2023-01-17] MEDS: MELATONIN 5 MG TABLETS PO SCH (21:14)
[2023-01-17] MEDS: THIAMINE HCL 100 MG TABLET (FP) PO SCH (21:14)
[2023-01-18] MEDS: NICOTINE 10 MG CARTRIDGE (INHALER) IH PRN ×3 (06:18→18:38)
[2023-01-18] MEDS: PRENATAL VITAMINS W/ FOLIC ACID TABLET (FP) PO SCH (10:07)
[2023-01-18] MEDS: amLODIPine BESYLATE 10 MG TABLET (FP) PO SCH (10:07)
[2023-01-18] MEDS: SERTRALINE HCL 50 MG TABLET (FP) PO SCH (10:07)
[2023-01-18] MEDS: IBUPROFEN 600 MG TABLET (FP) PO PRN (11:09)
[2023-01-18] MEDS: THIAMINE HCL 100 MG TABLET (FP) PO SCH (21:03)
[2023-01-18] MEDS: MELATONIN 5 MG TABLETS PO SCH (21:03)
[2023-01-19] MEDS: NICOTINE 10 MG CARTRIDGE (INHALER) IH PRN ×3 (09:50→21:09)
[2023-01-19] MEDS: amLODIPine BESYLATE 10 MG TABLET (FP) PO SCH (09:51)
[2023-01-19] MEDS: SERTRALINE HCL 50 MG TABLET (FP) PO SCH (09:51)
[2023-01-19] MEDS: PRENATAL VITAMINS W/ FOLIC ACID TABLET (FP) PO SCH (09:51)
[2023-01-19] MEDS: IBUPROFEN 600 MG TABLET (FP) PO PRN (09:52)
[2023-01-19] MEDS: THIAMINE HCL 100 MG TABLET (FP) PO SCH (21:09)
[2023-01-19] MEDS: MELATONIN 5 MG TABLETS PO SCH (21:09)
[2023-01-20] MEDS: SERTRALINE HCL 50 MG TABLET (FP) PO SCH (10:14)
[2023-01-20] MEDS: amLODIPine BESYLATE 10 MG TABLET (FP) PO SCH (10:15)
[2023-01-20] MEDS: PRENATAL VITAMINS W/ FOLIC ACID TABLET (FP) PO SCH (10:15)
[2023-01-20] MEDS: NICOTINE 10 MG CARTRIDGE (INHALER) IH PRN ×2 (10:15→14:15)
[2023-01-20] MEDS: MAGNESIUM HYDROX 2400MG/30ML ORAL SUSPENSION 30 ML CUP PO PRN (18:20)
[2023-01-20] MEDS: MELATONIN 5 MG TABLETS PO SCH (21:15)
[2023-01-20] MEDS: THIAMINE HCL 100 MG TABLET (FP) PO SCH (21:15)
[2023-01-21] MEDS: NICOTINE 10 MG CARTRIDGE (INHALER) IH PRN ×2 (05:38→16:17)
[2023-01-21] MEDS: SERTRALINE HCL 50 MG TABLET (FP) PO SCH (10:27)
[2023-01-21] MEDS: amLODIPine BESYLATE 10 MG TABLET (FP) PO SCH (10:27)
[2023-01-21] MEDS: PRENATAL VITAMINS W/ FOLIC ACID TABLET (FP) PO SCH (10:27)
[2023-01-21] MEDS: MELATONIN 5 MG TABLETS PO SCH (21:26)
[2023-01-21] MEDS: THIAMINE HCL 100 MG TABLET (FP) PO SCH (21:26)
[2023-01-22] MEDS: IBUPROFEN 600 MG TABLET (FP) PO PRN (06:08)
[2023-01-22] MEDS: NICOTINE 10 MG CARTRIDGE (INHALER) IH PRN ×3 (06:09→21:13)
[2023-01-22] MEDS: amLODIPine BESYLATE 10 MG TABLET (FP) PO SCH (10:15)
[2023-01-22] MEDS: PRENATAL VITAMINS W/ FOLIC ACID TABLET (FP) PO SCH (10:15)
[2023-01-22] MEDS: SERTRALINE HCL 50 MG TABLET (FP) PO SCH (10:16)
[2023-01-22] MEDS: MELATONIN 5 MG TABLETS PO SCH (21:13)
[2023-01-22] MEDS: THIAMINE HCL 100 MG TABLET (FP) PO SCH (21:14)
[2023-01-23 06:59] VITALS: BP 124/89; PULSE 88; RESP 18; TEMP 97.1
[2023-01-23] MEDS: PRENATAL VITAMINS W/ FOLIC ACID TABLET (FP) PO SCH (09:06)
[2023-01-23] MEDS: amLODIPine BESYLATE 10 MG TABLET (FP) PO SCH (09:06)
[2023-01-23] MEDS: SERTRALINE HCL 50 MG TABLET (FP) PO SCH (09:06)
== END 2023-01-23 09:12 | disposition home or self-care (01) | DRG 772 ==
LOC: YASAS 11:55 → Y3W 11:56
PROVIDERS: ADMIT Allergy & Immunology; ATTEND Psychiatry & Neurology Pain Medicine
PROC: HZ42ZZZ Group Counseling for Substance Abuse Treatment, Cognitive-Behavioral (ICD-10-PCS; principal; 2023-01-09)
DX: F10.20 Alcohol dependence, uncomplicated (principal); F12.20 Cannabis dependence, uncomplicated; F17.210 Nicotine dependence, cigarettes, uncomplicated; F19.282 Other psychoactive substance dependence with psychoactive substance-induced sleep disorder; F19.24 Other psychoactive substance dependence with psychoactive substance-induced mood disorder; F10.280 Alcohol dependence with alcohol-induced anxiety disorder; F10.282 Alcohol dependence with alcohol-induced sleep disorder; F10.24 Alcohol dependence with alcohol-induced mood disorder; F33.1 Major depressive disorder, recurrent, moderate; I10 Essential (primary) hypertension; Z86.69 Personal history of other diseases of the nervous system and sense organs
CPT/HCPCS: 36415; 86803; 90677; C9803-CS; G0008; Q2036; U0003; U0005